=== PATIENT | female | born 1985 | race Caucasian/White ===

== ENCOUNTER 2019-02-25 06:09 | Emergency (ER) | payer OTHER ==
[2019-02-25 06:58] LABS: CHLORIDE,CL 106 mmol/L (98-107); SODIUM,NA 141 mmol/L (136-145)
--- NOTE | 2019-02-25 06:58 | EDM.PDOC ---
ED HPI GENERAL MEDICAL PROBLEM - General Chief Complaint: Abdominal Pain Stated Complaint: RIGHT UPPER QUAD PAIN Time Seen by Provider: 02/25/19 06:44 Source of Information: Reports: Patient History Limitations: Reports: No Limitations - History of Present Illness INITIAL COMMENTS - FREE TEXT/NARRATIVE: Patient complains of sudden onset 7/10 abdominal pain that started in right upper quadrant around 2am. Extends somewhat towards epigastric area. Burning, constant. No emesis. Has had loose stools for several days. No fevers. Had Ibuprofen before bed last night for a back ache. No other pain medications taken. No history of previous similar pain. Nothing specifically makes the pain better. No increase in burping. afebrile Denies HEENT/CV/Resp/ changes. No neuro changes. 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 Right Upper Abdominal Pain Score (Numeric/FACES): 8 - Related Data Allergies Allergy/AdvReac Type Severity Reaction Status Date / Time No Known Allergies Allergy Verified 02/25/19 06:24 Home Meds: Home Meds Ergocalciferol (Vitamin D2) [Vitamin D2] 2,000 unit PO DAILY 02/25/19 [History] Hydrocodone/Acetaminophen [[place] 5-325 Tablet] 1 each PO Q6H PRN #15 tablet [Rx] Ibuprofen [Motrin] 600 mg PO Q6H PRN 02/25/19 [History] Pnv No.95/Ferrous Fum/Folic AC [ Caplet] 1 each PO DAILY 02/25/19 [ History] Past Medical History CLIENT ARCHITECT History: Reports: Other CLIENT ARCHITECT History: TUBAL LIGATION Oncologic (Cancer) History: Reports: None - Infectious Disease History Infectious Disease History: Reports: Chicken Pox Social & Family History - Tobacco Use Smoking Status *Q: Never Smoker - Caffeine Use Caffeine Use: Reports: Coffee - Recreational Drug Use Recreational Drug Use: No ED ROS GENERAL - Review of Systems Review Of Systems: ROS reveals no pertinent complaints other than HPI. ED EXAM, GI/ABD - Physical Exam Exam: See Below Exam Limited By: No Limitations General Appearance: Alert, WD/WN, Mild Distress Eyes: Bilateral: Normal Appearance, EOMI Ears: Normal External Exam Nose: No: Nasal Deformity, Nasal Swelling, Nasal Drainage Throat/Mouth: Normal Lips, Normal Voice, No Airway Compromise Head: Atraumatic, Normocephalic Neck: Normal Inspection, Supple Respiratory/Chest: No Respiratory Distress, Lungs Clear, Normal Breath Sounds, No Accessory Muscle Use, Chest Non-Tender Cardiovascular: Normal Peripheral Pulses, Regular Rate, Rhythm, No Edema GI/Abdominal Exam: No Distention, Guarding (mild), Tender (RUQ and epigastric area), Abnormal Bowel Sounds (decreased throughout). No: Rigid, Rebound (Female) Exam: Deferred Rectal (Female) Exam: Deferred Back Exam: Normal Inspection. No: CVA Tenderness (L), CVA Tenderness (R), Muscle Spasm Extremities: Normal Inspection, Normal Range of Motion, Normal Capillary Refill Neurological: Alert, Oriented, Normal Cognition, Normal Gait, No Motor/Sensory Deficits Psychiatric: Normal Affect, Normal Mood Skin Exam: Warm, Dry, Intact, Normal Color Course - Vital Signs Last Recorded V/S: Last Vital Signs Temp 36.4 C 02/25/19 06:10 Pulse 91 02/25/19 06:10 Resp 20 02/25/19 06:10 BP 118/79 02/25/19 06:10 Pulse Ox 99 02/25/19 06:10 - Orders/Labs/Meds Orders: Active Orders 24 hr Category Date Time Status Abdomen 2V AP Flat Upright [CR] Stat Exams 02/25/19 06:27 Taken Abdomen Ltd [US] Stat Exams 02/25/19 06:59 Taken UA W/MICROSCOPIC [URIN] Stat Lab 02/25/19 06:27 Ordered Morphine Med 02/25/19 07:09 Active 2 mg IVPUSH Q1H PRN Ondansetron [Zofran] Med 02/25/19 07:10 Active 4 mg IVPUSH Q4H PRN Sodium Chloride 0.9% [Saline Flush] Med 02/25/19 07:01 Active 10 ml FLUSH ASDIRECTED PRN Saline Lock Insert [OM.PC] Routine Oth 02/25/19 07:01 Ordered Labs: Laboratory Tests 02/25/19 02/25/19 Range/Units 06:27 06:35 WBC 7.4 (4.0-10.2) K/uL RBC 4.30 (3.77-5.09) M/uL Hgb 13.0 (11.7-15.5) g/dL Hct 40.1 (34.0-46.0) % MCV 93.3 (84.0-98.0) fL MCH 30.2 (28.2-33.3) pg MCHC 32.4 (31.7-36.0) g/dL RDW 12.7 (11.2-14.1) % Plt Count 363 H (150-350) K/uL Neut % (Auto) 66.5 (45.0-80.0) % Lymph % (Auto) 23.9 (10.0-50.0) % [place] % (Auto) 7.6 (2.0-14.0) % Eos % (Auto) 1.5 (0.0-5.0) % Baso % (Auto) 0.5 (0.0-2.0) % Neut # (Auto) 4.92 (1.40-7.00) K/uL Lymph # (Auto) 1.77 (0.50-3.50) K/uL [place] # (Auto) 0.56 (0.00-1.00) K/uL Eos # (Auto) 0.11 (0.00-0.50) K/uL Baso # (Auto) 0.04 (0.00-0.20) K/uL Sodium 141 (136-145) mmol/L Potassium 4.1 (3.5-5.1) mmol/L Chloride 106 (98-107) mmol/L Carbon Dioxide 22.9 (21.0-32.0) mmol/L BUN 13 (7-18) mg/dL Creatinine 0.66 (0.51-1.17) mg/dL Est Cr Clr Drug Dosing 100.29 mL/min Estimated GFR (MDRD) > 60 mL/min Glucose 92 (74-106) mg/dL Calcium 9.7 (8.5-10.1) mg/dL Total Bilirubin 0.7 (0.2-1.0) mg/dL AST 387 H (15-37) U/L ALT 242 H (12-78) U/L Alkaline Phosphatase 196 H (46-116) IU/L Total Protein 7.8 (6.4-8.2) g/dL Albumin 3.4 (3.4-5.0) g/dL Amylase 64 (25-115) U/L Lipase 188 (73-393) U/L Meds: Medications Discontinued Medications Generic Name Dose Route Start Last Admin Trade Name Freq PRN Reason Stop Dose Admin Al Hydroxide/Mg Hydroxide 30 ml 02/25/19 07:00 02/25/19 07:20 Gi Cocktail PO 02/25/19 07:01 30 ml ONETIME ONE Administration Sodium Chloride 1,000 mls @ 500 mls/hr 02/25/19 07:01 02/25/19 07:21 Normal Saline IV 02/25/19 09:00 500 mls/hr .BOLUS ONE Administration Ketorolac Tromethamine 30 mg 02/25/19 07:26 02/25/19 07:32 Toradol IVPUSH 02/25/19 07:27 30 mg ONETIME ONE Administration Morphine Sulfate 2 mg 02/25/19 07:01 02/25/19 07:35 Morphine IVPUSH 02/25/19 07:02 Not Given ONETIME ONE Morphine Sulfate 2 mg 02/25/19 07:09 Morphine IVPUSH Q1H PRN Pain Ondansetron HCl 4 mg 02/25/19 07:01 02/25/19 07:21 Zofran IVPUSH 02/25/19 07:02 4 mg ONETIME ONE Administration Ondansetron HCl 4 mg 02/25/19 07:10 Zofran IVPUSH Q4H PRN Nausea/Vomiting Sodium Chloride 10 ml 02/25/19 07:01 02/25/19 07:37 Saline Flush FLUSH 10 ml ASDIRECTED PRN Administration Keep Vein Open - Re-Assessments/Exams Free Text/Narrative Re-Assessment/Exam: Normal WBC. Elevated LFTs. Abdominal film and US ordered. US revealed distended gallbladder with some sludge noted via preliminary US tech interpretation. Pending formal Radiology review. Pain improved with Toradol. IV NS bolus given. Dietary changes to help improve current GB dysfunction reviewed. Recommend follow up tomorrow with [facility] [place] get [place]hecked and discuss possible surgical consultation. #15 Delphos given. To take 1 every 6 hours along with one single regular Tylenol to help with pain. Not to go over 30mg daily total dose of hydrocodone as she is . To follow up in ER as needed if further problems develop. Departure - Departure Time of Disposition: 08:42 Disposition: Home, Self-Care 01 Clinical Impression: Gallbladder dilatation, Cholelithiasis affecting , antepartum - Discharge Information *PRESCRIPTION DRUG MONITORING PROGRAM REVIEWED*: Not Applicable *COPY OF PRESCRIPTION DRUG MONITORING REPORT IN PATIENT MIRTA: Not Applicable Prescriptions: Hydrocodone/Acetaminophen [[place] 5-325 Tablet] 1 each PO Q6H PRN #15 tablet PRN Reason: Pain Instructions: Ondansetron injection, Cholelithiasis, [id number], Gallbladder Eating Plan, Cholecystitis, [id number] Referrals: Carmen Marina, [employer] [Primary Care Provider] - Forms: ED Department Discharge Additional Instructions: Look over the gallbladder diet recommendations. Avoid fat for now as it will trigger the gallbladder to try to squeeze out it contents which will increase your pain. Look at information on how one develops gallbladder disease in first place. You may get the recommendation to get the gallbladder to be removed. Recommend follow up tomorrow at [facility] to see how you are doing and to review plan. Be judicious with any narcotics as a small amount will be in breast milk if you take them. Follow up otherwise as needed if you have worsening problems. OK to use Tylenol for pain. You can add one single Tylenol tablet with the one Delphos if you decide to take the Delphos. Do not take more than 30mg of hydrocodone per 24 hours given the . Recommend one single [place] with one regular Tylenol every 6 hours for a start. - My Orders Last 24 Hours: My Active Orders 02/25/19 06:27 Abdomen 2V AP Flat Upright [CR] Stat UA W/MICROSCOPIC [URIN] Stat 02/25/19 06:59 Abdomen Ltd [US] Stat 02/25/19 07:01 Sodium Chloride 0.9% [Saline Flush] 10 ml FLUSH ASDIRECTED PRN Saline Lock Insert [OM.PC] Routine 02/25/19 07:09 Morphine 2 mg IVPUSH Q1H PRN 02/25/19 07:10 Ondansetron [Zofran] 4 mg IVPUSH Q4H PRN - Assessment/Plan Last 24 Hours: My Active Orders 02/25/19 06:27 Abdomen 2V AP Flat Upright [CR] Stat UA W/MICROSCOPIC [URIN] Stat 02/25/19 06:59 Abdomen Ltd [US] Stat 02/25/19 07:01 Sodium Chloride 0.9% [Saline Flush] 10 ml FLUSH ASDIRECTED PRN Saline Lock Insert [OM.PC] Routine 02/25/19 07:09 Morphine 2 mg IVPUSH Q1H PRN 02/25/19 07:10 Ondansetron [Zofran] 4 mg IVPUSH Q4H PRN
[2019-02-25] MEDS ORDERED: GI Cocktail Oral Solution 30 ML PO ONE (07:00)
[2019-02-25] MEDS ORDERED: Sodium Chloride 0.9% 1,000 ML IV ONE (07:01)
[2019-02-25] MEDS ORDERED: Sodium Chloride 0.9% 10 ML Syringe FLUSH PRN (07:01)
[2019-02-25] MEDS ORDERED: Morphine 2 MG/ML Syringe IVPUSH ONE (07:01)
[2019-02-25] MEDS ORDERED: Ondansetron 4 MG/2 ML SDV IVPUSH ONE (07:01)
[2019-02-25] MEDS ORDERED: Morphine 2 MG/ML Syringe IVPUSH PRN (07:09)
[2019-02-25] MEDS ORDERED: Ondansetron 4 MG/2 ML SDV IVPUSH PRN (07:10)
[2019-02-25] MEDS ORDERED: Ketorolac 30 MG/ML SDV IVPUSH ONE (07:26)
== END 2019-02-25 09:40 | disposition home or self-care (01) ==
LOC: MERGE 06:09 → LL.ED 06:09
DX: O99.619 Diseases of the digestive system complicating pregnancy, unspecified trimester (principal); K80.20 Calculus of gallbladder without cholecystitis without obstruction; Z3A.00 Weeks of gestation of pregnancy not specified; Z79.899 Other long term (current) drug therapy
CPT/HCPCS: 36415; 74019; 76705; 80053; 82150; 83690; 85025; 96361; 96374; 96375; 99284-25; A9270-GY; J1885; J2405; J7030

== ENCOUNTER 2023-09-13 03:26 | Emergency (ER) | payer BC ==
[2023-09-13] MEDS ORDERED: Sodium Chloride 0.9% 10 ML Syringe FLUSH PRN (03:54)
[2023-09-13 04:06] LABS: BASOPHILS ABSOLUTE AUTO 0.05 K/uL (0.00-0.20); BASOPHILS PERCENT AUTO 0.5 % (0.0-2.0); EOSINOPHILS ABSOLUTE AUTO 0.22 K/uL (0.00-0.50); EOSINOPHILS PERCENT AUTO 2.1 % (0.0-5.0); HEMATOCRIT 37.5 % (34.0-46.0); HEMOGLOBIN 12.1 g/dL (11.7-15.5); LYMPHOCYTES ABSOLUTE AUTO 1.24 K/uL (0.50-3.50); LYMPHOCYTES PERCENT AUTO 11.9 % (10.0-50.0); MEAN CORPUSCULAR HEMOGLOBIN 27.9 pg (28.2-33.3); MEAN CORPUSCULAR HGB CONC 32.3 g/dL (31.7-36.0); MEAN CORPUSCULAR VOLUME 86.4 fL (84.0-98.0); MONOCYTES PERCENT AUTO 11.5 % (2.0-14.0); NEUTROPHILS ABSOLUTE AUTO 7.68 K/uL (1.40-7.00); PLATELET COUNT,PLT 299 K/uL (150-350); RED BLOOD CELL COUNT 4.34 M/uL (3.77-5.09); RED CELL DISTRIBUTION WIDTH 13.8 % (11.2-14.1); WHITE BLOOD CELL COUNT,WBC 10.4 K/uL (4.0-10.2)
[2023-09-13] MEDS: Sodium Chloride 0.9% 1,000 ML IV ONE ×2 (04:25→06:25)
[2023-09-13 04:27] LABS: ALANINE AMINOTRANSFERASE,ALT 20 U/L (12-78); ALBUMIN 3.5 g/dL (3.4-5.0); ALKALINE PHOSPHATASE 86 IU/L (46-116); ANION GAP 11.3 meq/L (7-15); ASPARTATE AMNIOTRANSFERASE,AST 12 U/L (15-37); BILIRUBIN TOTAL 0.5 mg/dL (0.2-1.0); BLOOD UREA NITROGEN,BUN 10 mg/dL (7-18); CALCIUM 8.4 mg/dL (8.5-10.1); CARBON DIOXIDE,CO2 24.7 mmol/L (21.0-32.0); CHLORIDE,CL 100 mmol/L (98-107); GLUCOSE RANDOM 101 mg/dL (70-99); MAGNESIUM 1.8 mg/dL (1.8-2.4); PRO B-TYPE NATRIUR PEPT,BNPPRO 41 pg/mL (0-125); PROTEIN TOTAL,TP 7.9 g/dL (6.4-8.2); SODIUM,NA 136 mmol/L (136-145)
[2023-09-13 04:28] LABS: ESTIMATED GFR 74 mL/min (>=60)
[2023-09-13] MEDS: Ibuprofen 400 MG Tab PO ONE (04:28)
[2023-09-13] MEDS: Benzonatate 100 MG Cap PO ONE (04:29)
[2023-09-13] MEDS: Iopamidol 755 Mg/ML 100 ML Bottle IVPUSH ONE (05:11)
[2023-09-13 08:17] VITALS: BP 120/62; PULSE 92
== END 2023-09-13 07:44 | disposition home or self-care (01) ==
LOC: LL.ED 03:26
DX: U07.1 COVID-19 (principal); E86.0 Dehydration; R06.02 Shortness of breath; Z79.899 Other long term (current) drug therapy
CPT/HCPCS: 36415; 71275; 80053; 83605; 83735; 83880; 85025; 85379; 93005; 96360; 99285-25; A9270-GY; J7030; Q9967